=== PATIENT | female | born 1990 | race Caucasian/White ===

== ENCOUNTER 2025-11-08 22:53 | Inpatient (IN) | payer MEDICAID ==
[~2025-11-08] VITALS: Ht 165.1 cm; Wt 119.7 kg
[2025-11-08] MEDS ORDERED: FENTANYL PF 100MCG/2ML AMPUL ONE (23:09)
[2025-11-08] MEDS: FENTANYL PF 100MCG/2ML AMPUL IM ONE (23:15)
[2025-11-09] MEDS ORDERED: LORAZEPAM 1 MG TABLET PO PRN
[2025-11-09] MEDS ORDERED: MAG HYDROX/AL HYDROX/SIMETH 30 ML UDC PO PRN
[2025-11-09] MEDS ORDERED: MAGNESIUM HYDROXIDE 30 ML UDC PO PRN
[2025-11-09] MEDS ORDERED: ONDANSETRON HCL/PF 4 MG/2 ML VIAL IVP PRN
[2025-11-09] MEDS: ENOXAPARIN SODIUM 40 MG/0.4 ML DISP.SYRIN SQ SCH
[2025-11-09] MEDS ORDERED: ACETAMINOPHEN 325 MG TABLET PO PRN
[2025-11-09 00:01] LABS: PLATELET COUNT (AUTO) 290 K/uL (150-450); RED BLOOD CELL COUNT(AUTO) 4.46 MIL/uL (4.0-5.2); RED CELL DISTRIBUTION WIDTH 13.7 % (11.5-15.0); WHITE BLOOD COUNT (AUTO) 8.9 K/uL (4.3-11.0)
[2025-11-09 00:04] LABS: CALCIUM, SERUM 8.4 mg/dL (8.5-10.1); CREATININE 0.8 mg/dL (0.6-1.3); SODIUM SERUM 139.0 mmol/L (136-145); UREA NITROGEN, BLOOD 17.0 mg/dL (7-18)
[2025-11-09] MEDS ORDERED: PROPOFOL 20 ML IV ONE (00:13)
[2025-11-09 00:21] LABS: INR 0.92 (0.91-1.10)
[2025-11-09] MEDS: PROPOFOL 200 MG/20 ML VIAL IV ONE (00:25)
[2025-11-09] MEDS ORDERED: LORAZEPAM INJ 2 MG/ML VIAL IV PRN (01:00)
[2025-11-09] MEDS ORDERED: ENOXAPARIN SODIUM 40 MG/0.4 ML DISP.SYRIN SQ ONE (01:36)
[2025-11-09] MEDS ORDERED: HYDROMORPHONE 1 MG/1 ML DISP.SYRIN ONE (01:37)
[2025-11-09] MEDS: Thiamine 100 MG in IV D5W 50 ML IV SCH (01:42)
[2025-11-09] MEDS: HYDROMORPHONE 1 MG/1 ML DISP.SYRIN IV PRN (01:42)
[2025-11-09 01:59] VITALS: O2SAT 98
[2025-11-09 02:30] VITALS: BP 164/88; TEMP 98.1; O2SAT 97
[2025-11-09] MEDS: IV D5/ 0.9% NACL 1,000 ML IV PRN (02:31)
[2025-11-09] MEDS: HYDROMORPHONE 1 MG/1 ML DISP.SYRIN IV ONE (03:56)
[2025-11-09 07:18] LABS: PLATELET COUNT (AUTO) 276 K/uL (150-450); RED BLOOD CELL COUNT(AUTO) 4.08 MIL/uL (4.0-5.2); RED CELL DISTRIBUTION WIDTH 13.6 % (11.5-15.0); WHITE BLOOD COUNT (AUTO) 7.8 K/uL (4.3-11.0)
[2025-11-09 07:46] LABS: CALCIUM, SERUM 8.1 mg/dL (8.5-10.1); CREATININE 0.7 mg/dL (0.6-1.3); PHOSPHORUS 3.0 mg/dL (2.5-4.9); SODIUM SERUM 140.0 mmol/L (136-145); UREA NITROGEN, BLOOD 14.0 mg/dL (7-18)
[2025-11-09 07:57] LABS: LDL 71.0 mg/dL (0-99)
[2025-11-09] MEDS: PANTOPRAZOLE 40 MG VIAL IV SCH (08:27)
[2025-11-09 09:36] VITALS: BP 146/86; TEMP 98; O2SAT 96
[2025-11-09] MEDS ORDERED: FENTANYL PF 100MCG/2ML AMPUL ONE (10:20)
[2025-11-09] MEDS ORDERED: ANESTHESIA TRAY IN PYXIS 1 EA TRAY MC ONE (10:21)
[2025-11-09] MEDS ORDERED: LABETALOL 20 MG/4 ML VIAL ONE (11:25)
[2025-11-09 16:16] VITALS: BP_SYST 155; TEMP 98.3; O2SAT 99
[2025-11-09 20:00] VITALS: BP 135/76; TEMP 98.2; O2SAT 98
[2025-11-10 06:24] LABS: PLATELET COUNT (AUTO) 248 K/uL (150-450); RED BLOOD CELL COUNT(AUTO) 3.93 MIL/uL (4.0-5.2); RED CELL DISTRIBUTION WIDTH 13.6 % (11.5-15.0); WHITE BLOOD COUNT (AUTO) 7.8 K/uL (4.3-11.0)
[2025-11-10 07:00] VITALS: BP 129/73; TEMP 98.6; O2SAT 99
[2025-11-10 07:02] LABS: CALCIUM, SERUM 7.6 mg/dL (8.5-10.1); CREATININE 0.6 mg/dL (0.6-1.3); PHOSPHORUS 2.2 mg/dL (2.5-4.9); SODIUM SERUM 139.0 mmol/L (136-145); UREA NITROGEN, BLOOD 8.0 mg/dL (7-18)
[2025-11-10] MEDS: ASPIRIN EC 81 MG TABLET.DR PO SCH (08:43)
[2025-11-10] MEDS ORDERED: ASPI-1420 PO (08:56)
[2025-11-10] MEDS ORDERED: TRAM50TA2 PO (08:56)
[2025-11-10] MEDS ORDERED: TRAMADOL HCL 50 MG TABLET PO PRN (09:00)
[2025-11-10] MEDS: NYSTATIN/TRIAMCIN CREAM 15 GM TUBE TP SCH (13:37)
[2025-11-10] MEDS ORDERED: NYST15CR2 TP (13:43)
[2025-11-10] MEDS ORDERED: K PHOS NEUTRAL 250 MG TABLET PO ONE (17:00)
== END 2025-11-10 14:40 | disposition home or self-care (01) | DRG 342 ==
LOC: ER 22:56 → MED 11-09 01:02
PROVIDERS: ADMIT Nurse Practitioner Acute Care; ATTEND Nurse Practitioner Acute Care
PROC: 0QSHXZZ Reposition Left Tibia, External Approach (ICD-10-PCS; 2025-11-09)
PROC: 0SSGXZZ Reposition Left Ankle Joint, External Approach (ICD-10-PCS; 2025-11-09)
PROC: 0QSKXZZ Reposition Left Fibula, External Approach (ICD-10-PCS; principal; 2025-11-09 10:30)
DX: S82.852A Displaced trimalleolar fracture of left lower leg, initial encounter for closed fracture (principal); E66.01 Morbid (severe) obesity due to excess calories; F10.20 Alcohol dependence, uncomplicated; W01.0XXA Fall on same level from slipping, tripping and stumbling without subsequent striking against object, initial encounter; F12.90 Cannabis use, unspecified, uncomplicated; Y92.039 Unspecified place in apartment as the place of occurrence of the external cause; Z68.42 Body mass index [BMI] 45.0-49.9, adult; L30.4 Erythema intertrigo; Z88.5 Allergy status to narcotic agent; Z98.891 History of uterine scar from previous surgery
CPT/HCPCS: 36415; 71045-TC; 73610-TC; 80048-TC; 80061-TC; 83735-TC; 84100-TC; 84443-TC; 84702-TC; 85025-TC; 85730-TC; 86850-TC; 97110-TC; 97116-TC; 97530-TC; A4223; G0378; J0690; J1100; J1171; J1650; J2405; J2470; J2704; J3010; J3411; J3490; J7030; J7040; J7042; J7060